=== PATIENT | male | born 1975 | race American Indian/Alaskan Native ===

== ENCOUNTER 2017-01-27 16:01 | Inpatient (IN) | payer OTHER ==
[2017-01-27 17:24] LABS: Basophils % (Auto) 0.9 % (0.0-1.8); Eosinophils % (Auto) 5.9 % (0.0-4.3); Hematocrit 52.2 % (35.5-45.6); Hemoglobin 17.2 gm/dl (11.8-15.2); Mean Corpuscular HGB Conc 33 % (32-34); Mean Corpuscular Hemoglobin 29 pg (28-32); Mean Corpuscular Volume 89 fl (84-94); Platelet Count 218 K/mm3 (140-440); Red Cell Distribution Width 13.8 % (13.2-15.2); White Blood Count 6.4 K/mm3 (4.5-11.0)
[2017-01-27 17:39] LABS: Anion Gap 20 mmol/L; BUN/Creatinine Ratio 12.22; Blood Urea Nitrogen 11 mg/dL (9-20); Calcium 9.4 mg/dL (8.4-10.2); Carbon Dioxide 27 mmol/L (22-30); Chloride 99.5 mmol/L (98-107); Glucose 89 mg/dL (75-100); Potassium 4.2 mmol/L (3.6-5.0); Sodium 142 mmol/L (137-145)
[2017-01-27] MEDS ORDERED: ZOFRAN IV ONE (19:59)
[2017-01-27] MEDS ORDERED: XOPENEX IH ONE (19:59)
[2017-01-27] MEDS ORDERED: SUBLIMAZE IV ONE (19:59)
[2017-01-27] MEDS ORDERED: ATROVENT IH ONE (19:59)
--- NOTE | 2017-01-27 20:06 | Emergency Department Report ---
HPI - General Chief Complaint: Chest Pain Time Seen by Provider: 01/27/17 19:51 - HPI HPI: Room 23 The patient is a 41-year-old male presenting with a chief complaint of chest pain. Patient states his symptoms began 2 days ago with left lower back pain. The patient states this morning he developed left chest tightness associated with shortness of breath. Patient denies nausea vomiting or diaphoresis. Patient has a history of spontaneous pneumothorax on the right side approximately 2 years ago and stated it feels similar. Patient states he's never had a stress test or cardiac catheterization Location: [see above] Duration: [see above] Quality: Tightness Severity: 8-910 Modifying factors: [see above] Context: [see above] Mode of transportation: Unknown ED Past Medical Hx - Past Medical History Hx Asthma: Yes (38 yrs.) Additional medical history: Spontaneous right-sided pneumothorax 2015 treated with nonrebreather - Surgical History Past Surgical History?: No - Family History Family history: no significant - Social History Smoking Status: Current Every Day Smoker (1/2 pack per day) Substance Use Type: None (denies illicit drug use), Alcohol (occasional) - Medications Home Medications: Home Medications Medication Instructions Recorded Confirmed Last Taken Type Ipratropium/Albuterol Sulfate 1 ampul IH TIDRT PRN #30 ampul.neb 09/14/13 Unknown Rx [DUONEB *Not for PRN Use*] Albuterol Sulfate [Ventolin HFA] 2 puff IH Q4H PRN #1 hfa.aer.ad 02/04/15 Unknown Rx ED Review of Systems ROS: Stated complaint: BACK PAIN/ASTHMA Other details as noted in HPI Comment: All other systems reviewed and negative Constitutional: denies: chills, fever Eyes: denies: eye pain, eye discharge, vision change ENT: denies: ear pain, throat pain Respiratory: cough, shortness of breath Cardiovascular: chest pain Endocrine: no symptoms reported Gastrointestinal: denies: abdominal pain, nausea, diarrhea Genitourinary: denies: urgency, dysuria Musculoskeletal: denies: back pain, joint swelling, arthralgia Skin: denies: rash, lesions Neurological: denies: headache, weakness, paresthesias Psychiatric: denies: anxiety, depression Hematological/Lymphatic: denies: easy bleeding, easy bruising Physical Exam - Physical Exam Vital Signs: Vital Signs 01/27/17 01/27/17 01/27/17 16:16 18:25 19:29 Temperature 98.4 F 98.2 F Pulse Rate 88 60 80 Respiratory 16 14 18 Rate Blood Pressure 130/96 Blood Pressure 124/84 124/94 [Right] O2 Sat by Pulse 96 100 100 Oximetry Physical Exam: GENERAL: The patient is well-developed well-nourished male sitting on stretcher not appearing to be in acute distress. [] HEENT: Normocephalic. Atraumatic. Extraocular motions are intact. Patient has moist mucous membranes. NECK: Supple. Trachea midline CHEST/LUNGS: Breath sounds equal bilaterally. There is a faint whistling auscultated during expiration on the left. Faint wheezes auscultated bilaterally. There is no respiratory distress noted. HEART/CARDIOVASCULAR: Regular. There is no tachycardia. There is no gallop rub or murmur. ABDOMEN: Abdomen is soft, nontender. Patient has normal bowel sounds. There is no abdominal distention. SKIN: There is no rash. There is no edema. There is no diaphoresis. NEURO: The patient is awake, alert, and oriented. The patient is cooperative. The patient has normal speech and gait. MUSCULOSKELETAL: There is no evidence of acute injury. ED Course Vital Signs 01/27/17 01/27/17 01/27/17 16:16 18:25 19:29 Temperature 98.4 F 98.2 F Pulse Rate 88 60 80 Respiratory 16 14 18 Rate Blood Pressure 130/96 Blood Pressure 124/84 124/94 [Right] O2 Sat by Pulse 96 100 100 Oximetry - Consultations Consultation #1: 01/27/17 22:39 CT chest discussed with the reading radiologist Dr. Parada. She states the left hilum contains a bulla ED Medical Decision Making - Lab Data Result diagrams: 01/27/17 16:44 01/27/17 16:44 Laboratory Tests 01/27/17 01/27/17 01/27/17 16:44 16:44 18:36 WBC 6.4 RBC 5.90 H Hgb 17.2 H Hct 52.2 H MCV 89 MCH 29 MCHC 33 RDW 13.8 Plt Count 218 Lymph % (Auto) 32.5 Churchill % (Auto) 8.7 H Eos % (Auto) 5.9 H Baso % (Auto) 0.9 Lymph # 2.1 Churchill # 0.6 Eos # 0.4 Baso # 0.1 Seg Neutrophils % 52.0 Seg Neutrophils # 3.4 Sodium 142 Potassium 4.2 Chloride 99.5 Carbon Dioxide 27 Anion Gap 20 BUN 11 Creatinine 0.9 Estimated GFR > 60 BUN/Creatinine Ratio 12.22 Glucose 89 Calcium 9.4 Troponin T < 0.010 < 0.010 01/27/17 21:39 WBC RBC Hgb Hct MCV MCH MCHC RDW Plt Count Lymph % (Auto) Churchill % (Auto) Eos % (Auto) Baso % (Auto) Lymph # Churchill # Eos # Baso # Seg Neutrophils % Seg Neutrophils # Sodium Potassium Chloride Carbon Dioxide Anion Gap BUN Creatinine Estimated GFR BUN/Creatinine Ratio Glucose Calcium Troponin T < 0.010 - EKG Data -: EKG Interpreted by Me EKG shows normal: sinus rhythm Rate: normal - EKG Data When compared to previous EKG there are: previous EKG unavailable Interpretation: nonspecific ST-T wave arianne (T-wave inversion in lead V2) 01/27/17 22:15 EKG #2 performed at 21:35 reveals normal sinus rhythm at 65 bpm. Patient continues to have T-wave inversion in lead V2 but otherwise no ischemic changes - Radiology Data Radiology results: report reviewed (CT chest), image reviewed (chest x-ray, CT chest) interpreted by me: Chest x-ray-no focal infiltrates, no pneumothorax CT chest (read by myself)-large cystic/cavitary lesion at left hilum images [address] chest (read by radiologist)- no evidence of pulmonary embolus. 8 mm hypodense lesion in the liver. Splenic calcified granulomas. *After a phone call with radiologist she states cystic lesion seen in the left hilum represents a bulla* - Differential Diagnosis pneumothorax, PE, ACS, pericarditis, pneumonia Critical care attestation.: If time is entered above; I have spent that time in minutes in the direct care of this critically ill patient, excluding procedure time. ED Disposition Clinical Impression: Chest pain Disposition: OP ADMIT IP TO THIS HOSP Is pt being admited?: Yes Condition: Fair Instructions: Chest Pain (ED) Referrals: PRIMARY CARE, [Primary Care Provider] - 3-5 Days Time of Disposition: 22:32 (hospitalist paged)
--- NOTE | 2017-01-27 20:30 | XRay Report ---
FINAL REPORT EXAM: XR CHEST 1V AP HISTORY: left chest pain TECHNIQUE: AP portable chest radiograph. PRIORS: None FINDINGS: The lungs are clear. No focal consolidation or pleural effusion is identified. The mediastinum and pita are normal. The aorta is normal. The cardiac silhouette is normal. The osseous structures are intact. IMPRESSION: No evidence of acute cardiopulmonary disease.
[2017-01-27] MEDS ORDERED: NACL ONE (21:00)
--- NOTE | 2017-01-27 22:14 | Cat Scan Report ---
FINAL REPORT EXAM: CT ANGIO CHEST HISTORY: left chest and back pain, shortness of breath TECHNIQUE: CT angiogram of the chest. 100 cc of Omnipaque 350 was administered. MIP, coronal and sagittal reconstructions were obtained. PRIORS: None. FINDINGS: No filling defects are identified in the pulmonary arteries, 1st and 2nd order branches. There is no evidence of an aortic aneurysm or dissection. No focal consolidation or pleural effusion is seen. The central airways are patent. No abnormally enlarged lymph nodes are identified. There is no pericardial effusion. The thyroid gland is normal. Evaluation of the upper abdomen demonstrates a 8 mm hypodense lesion in the liver which is too small to characterize. Calcified granulomas in the spleen. The osseous structures are unremarkable. IMPRESSION: No evidence of pulmonary embolism. 8mm hypodense lesion in the liver. Splenic calcified granulomas.
[2017-01-27] MEDS ORDERED: NITRO-BID 2% TP ONE (22:44)
[2017-01-27] MEDS ORDERED: ASPIRIN PO ONE (22:44)
--- NOTE | 2017-01-27 23:38 | History and Physical Report ---
History of Present Illness Date of examination: 01/27/17 Date of admission: 01/27/17 22:42 Chief complaint: CP History of present illness: Patient is a 41 yo man with a history of asthma, tobacco dependancy and spontaneous pneumothorax who presents with severe, constant, nonradiating left- sided chest tightness that started last evening without any aggravating or relieving factors. Patient denies any shortness of breath, nausea vomiting abdominal pain, fevers chills worsening cough. CTA of the chest no evidence of pulmonary embolism, 8mm hyperdense lesion fever, splenic calcification granuloma , there is bulla in the medial left lower lobe Past Medical History: Asthma, Pneumothorax Past Surgical History: He denies Social history: He smokes a half a pack of cigarettes a day, he denies any alcohol dependency, he does smoke marijuana on occasion Family history: Paternal grandmother had hypertension, asthma ROS: Constitutional: no weight loss, no weight gain, no chills, no sweats, no fatigue , no weakness, no poor appetite Ears, nose, mouth and throat: no deferred, no ear pain, no decreased hearing, no sinus pressure, no bleeding gums, no dental pain, no mouth pain, no hoarseness, no sore throat, no swelling in mouth, no post-nasal drip, no headache, no vertigo, no pain front of neck, no neck lump Cardiovascular: lightheadedness, decreased exercise tolerance, no orthopnea, no palpitations, no rapid/irregular heart beat, no edema, no syncope, no shortness of breath, no dyspnea on exertion, no paroxysmal nocturnal dyspnea, no claudication, no phlebitis, no high blood pressure, no leg edema Respiratory: no cough with sputum, no excessive sputum, no hemoptysis, no pleurisy, no pain, no pain on inspiration, no respiratory infections, no other Gastrointestinal: no nausea, no diarrhea, no constipation, no hematemesis, no hematochezia, no loss of appetite, no early satiety, no indigestion, no dyspepsia/bloating Genitourinary Male: no flank pain, no discharge, no urinary hesitancy, no nocturia Rectal: no incontinence, no bleeding, no itching, no discharge Musculoskeletal: no neck stiffness, no shooting arm pain, no arm numbness/ tingling, no shooting leg pain, no leg numbness/tingling, no atrophy, no limitation of motion, no fractures, no loss of height, no prior amputations, no arthritis Integumentary: no depigmentation, no dryness, no unusual bruising Neurological: no weakness, no tingling, no syncope, no vertigo, no migraines, no aphasia, no change in mentation, no changes in smell/taste, no balance difficulties, no double vision, no burning pain, no paralysis Psychiatric: hypersomnia, change in libido, irritability, no anxiety, no memory loss, no sleep disturbances, no change in appetite, no disorientation, no hallucinations, no paranoia, no hopelessness, no anxiety attacks, no confusion Endocrine: no cold intolerance, no polyphagia, no polydipsia, no polyuria, no nocturia, no proptosis, no palpatations, no high blood sugars, no low blood sugars, no fatigue Hematologic/Lymphatic: no easy bruising, no lymphedema Allergic/Immunologic: no urticaria, no allergic rhinitis, no anaphylaxis Medications and Allergies Allergies Allergy/AdvReac Type Severity Reaction Status Date / Time No Known Allergies Allergy Verified 01/27/17 19:32 Home Medications Medication Instructions Recorded Confirmed Last Taken Type Ipratropium/Albuterol Sulfate 1 ampul IH TIDRT PRN #30 ampul.neb 09/14/13 Unknown Rx [DUONEB *Not for PRN Use*] Albuterol Sulfate [Ventolin HFA] 2 puff IH Q4H PRN #1 hfa.aer.ad 02/04/15 Unknown Rx Exam - Physical Exam Narrative exam: GEN: WDWN, NAD, AWAKE, ALERT, ORIENTATED x 3 HEENT: NCAT, PERRL, EOMI, OP CLEAR NECK: SUPPLE, NO THYROMEGALY, NO JVD, NO LAD CVS: RRR, NORMAL S1S2 LUNGS/CHEST: CTA B, NORMAL CHEST EXPANSION B, GOOD AIR ENTRY B, reproducible chest wall tenderness ABD: SOFT, NTND, GBS, NO REBOUND OR GUARDING EXT/SKIN: NO SIGNIFICANT EDEMA OR RASH MSK: FROM X 4 EXTREMITIES NEURO: CN 2-12 GROSSLY INTACT, NO FOCAL DEFICITS PSY: CALM - Constitutional Vitals: Temp Pulse Resp BP Pulse Ox 98.2 F 77 16 114/63 100 01/27/17 18:25 01/27/17 22:56 01/27/17 22:46 01/27/17 22:56 01/27/17 22:46 Results - Labs CBC & Chem 7: 01/27/17 16:44 01/27/17 16:44 Assessment and Plan Patient is a 41 yo man with a history of asthma, tobacco dependancy and spontaneous pneumothorax who presents with severe, constant, nonradiating left- sided chest tightness with left back pain that started last evening without any aggravating or relieving factors. Patient denies any shortness of breath, nausea, vomiting, abdominal pain, fevers, chills, worsening cough. CTA of the chest no evidence of pulmonary embolism, 8mm hyperdense lesion fever, splenic calcification granuloma, there is bulla in the medial left lower lobe -Chest pain, reproducible most likely muscle skeletal: Get stress test -Tobacco dependency: Counseling stopping -Mild asthma exacerbation: Treat with albuterol -DVT prophylaxis: Subcutaneous heparin
[2017-01-28] MEDS ORDERED: PROVENTIL IH PRN (01:01)
[2017-01-28] MEDS: HEPARIN SUB-Q SCH ×3 (02:22→22:23)
--- NOTE | 2017-01-28 06:50 | Admit Criteria Form ---
Admission Criteria Documentation: CARDIOLOGY GRG Clinical Indications for Admission to Inpatient Care ([place]/check or initial the applicable condition/criteria) Hospital admission is needed for appropriate care of the patient because of ANY ONE of the following: [ ] I. Hemodynamic instability as indicated by ALL of the following (1)(2)(3) (4)(5)(6)(7)(8)(9)(10) [ ]a) Vital sign abnormality not readily corrected by appropriate treatment with 12-24 hours for ANY ONE: [ ]i) Hypotension that persists despite appropriate treatment (eg, volume repletion) [ ]ii) Tachycardiathat persists despite appropriate tx ( e.g., analgesia, fluids, sedation as indicated [ ]iii) Orthostatic vital sign changes that persists despite appropriate treatment (eg, volume repletion) [ ]b) Vital sign abnormailty that is severe indicated by ANY ONE of the following: [ ]i) Inadequate perfusion indicated by ANY ONE of the following: [ ] 1) Lactic acidosis (> 2 mmol/L) [ ] 2) New abnormal capillary refill (> 3 seconds) [ ] 3) Reduced urine output [ ] 4) New altered mental status [ ] 5) Myocardial Ischemia [ ] 6) Other metabolic acidosis (arterial pH <7.35 ) not otherwise explained. [ ]ii) Mean arterial pressure[A] less than 60 mm Hg [ ]iii) Mean arterial pressure[A] less than 70 mm Hg after 30 minutes of appropriate treatment (eg, fluid resuscitation) [ ]iv) Sustained heart rate greater than 120 beats per minute in adult or child 6 years or older[B] [ ]v) IV inotropic or vasopressor medication required to maintain adequate blood pressure or perfusion [ ] II. Severe heart failure as indicated by ANY ONE of the following(17)(18) [ ]a) Respiratory distress [ ]b) Hypotension [ ]c) Debilitating anasarca refractory to therapy (eg, tissue breakdown with infection)[C](19) [ ]d) Cardiac arrhythmias of immediate concern [ ]e) Myocardial ischemia [ ] III. Cardiac arrhythmias or findings of immediate concern indicated by ANY ONE of the following (21)(22): [ ] a) Heart rhythms that are inherently dangerous or unstable indicated by ANY ONE of the following (23)(24)(25): [ ] i) Resuscitated ventricular fibrillation or cardiac arrest [ ] ii) Ventricular escape rhythm [ ] iii) Sustained ventricular tachycardia (30 seconds or more of ventricular rhythm at greater than 100 beats per minute) [ ] iv) Nonsustained ventricular tachycardia and ANY ONE of the following: [ ] 1) Suspected cardiac ischemia as cause or consequence of ventricular tachycardia [ ] 2) Acute myocarditis [ ] b) Unstable cardiac conduction defects indicated by ANY ONE of the following(25)(26)(27) [ ] i) Type II second-degree atrioventricular block [ ]ii) Third-degree atrioventricular block [ ]iii) New-onset left bundle branch block with suspected myocardial ischemia [ ]c) Any heart rhythm and ANY ONE of the following (23)(24)(28)(29) (30) [ ] i) Continuous long-term ECG monitoring needed (e.g., initiation of drug requiring monitoring for more than 24 hours) [ ] ii) Patient has automatic implanted cardioverter defibrillator that is repeatedly firing, malfunctioning, or in need of immediate adjustment of settings beyond the scope of ambulatory or observation care [ ]d) Heart rhythms of concern due to ANY ONE of the following: [ ] i) Hypotension [ ] ii) Respiratory distress [ ] iii) Association with other significant symptoms (e.g., bradycardia with syncope or ongoing dizziness, supraventricular tachycardia with chest pain (28)(29)(31) [ ] IV. Monitoring for cardiac contusion beyond the scope of observation care needed [A](32)(33)(34) [ ] V. Surgical or device complication (e.g., valve replacement complication , ICD disfunction or pacemaker dysfunction) (49)(50)(51)(52)(53)(54) [ ] . Inpatient palliative care needed. [F](51)(52) Also use Inpatient Palliative Care Criteria [ ] VII. Nonbacterial thrombotic (marantic) endocarditis(43)(44)(55)(56)(57) [ X] VIII. Cardiology condition, symptom, or finding for which emergency and observation care has failed or are not considered appropriate. [ ] IX. Acute valvular disease requiring inpatient as indicated by ANY ONE of the following (40)(41) [ ]a) Acute valvular regurgitation (42) [ ]b) Noninfectious valvulitis (43)(44) [ ]c) Obstructive valve thrombosis (45)(46) [ ]d) Paravalvular leak(47)(48) [ ]e) Other significant valvular disorder remaining after emergency or observation level of care (as appropriate) [ ]X. Pericardial disease requiring inpatient treatment as indicated by ANY ONE of the following (35)(36)(37)(38) [ ]a) Suspected tamponade [ ]b) Hemopericardium [ ]c) Other significant pericardial disorder remaining after emergency or observation level of care (as appropriate)(39) [ ] XI. Cardiac ischemia beyond scope of emergency and observation care. [ ] XII. Cyanotic heart disease requiring inpatient care as indicated by 1 or more of the following(58)(59)(60): [ ]a) Acute onset of hypoxemia [ ]b) Exacerbation [ ] XIII. Hypertension requiring inpatient treatment as indicated by ANYONE of the following(11)(12)(13)(14): [ ]a) Severe hypertension (SBP greater than 180 mm Hg or DBP greater than 110 mm Hg, or greater than the 95th percentile for age, gender, and height in pediatric patients) that cannot be controlled (eg, to SBP less than 160 mm Hg and DBP less than 100 mm Hg) by emergency department or observation care treatment(15) [ ]b) Acute end organ damage secondary to hypertension (SBP greater than 140 mm Hg or DBP greater than 90 mm Hg) as indicated by ANYONE of the following: [ ] i) Hypertensive encephalopathy (eg, Altered mental status)(16) [ ] ii) Cerebral infarction [ ] iii) Intracranial hemorrhage [ ] iv) Myocardial ischemia or infarction [ ] v) Heart failure (eg, pulmonary edema) [ ] vi) Aortic dissection [ ] vii) Increased creatinine (new) with reduction of more than 50% in estimated glomerular filtration rate from baseline [ ] viii) Papilledema [ ] ix) Retinal hemorrhage [ ] x) Microangiopathic hemolytic anemia [ ] xi) Seizure [ ] xii) Other significant finding secondary to hypertension [ ] XIV. Complications of transplanted heart indicated by ANY ONE of the following(61): [ ]a) Acute graft rejection requiring inpatient management (eg, intravenous imunosuppression)(62)(63) [ ]b) Acute graft heart failure indicated by ANY ONE of the following(64): [ ] i) Hemodynamic instability [ ] ii) Cardiac arrhythmias of immediate concern [ ] iii) Pulmonary edema that is very severe (eg, mechanical ventilation needed, imminent or likely, need for 100% oxygen to keep oxygen saturation above 90%) [ ] iv) Pulmonary edema that is persistent as indicated by ALL of the following: [ ] 1) New need for oxygen therapy to keep oxygen saturation above 90 % (or increased FiO2 need from baseline) [ ] 2) Has not improved sufficiently with emergency department or observation care IV diuretics or other heart failure treatments[E]. [ ] iv) Altered mental status that is severe or persistent [ ] iv) Increased creatinine (new on laboratory test) with reduction of more than 50% in estimated glomerular filtration rate from baseline [ ] iv) Progressively (ongoing) rising creatinine (known from past laboratory test) with reduction of more than 25% in estimated glomerular filtration rate from baseline [ ] iv) Acute renal failure [ ] iv) Acute peripheral ischemia (eg, examination shows pulseless, cool, mottled, or cyanotic extremity) [ ] iv) Pulmonary artery catheter monitoring needed [ ] iv) Other sign or symptom of heart failure requiring inpatient treatment (ie, too severe or not responsive to outpatient and observation care treatment) [ ]c) Infection requiring inpatient management (eg, Hemodynamic instability, need for intravenous antimicrobial treatment)(66)(67)(68)(69)(70) [ ]d) Cardiac allograft vasculopathy requiring inpatient management (eg evidence of cardiacischemia)(71) [ ]e) Other complication of transplanted heart (eg, stroke, severe pulmonary hypertension, severe valvular dysfunction) requiring inpatient management(72) The original [employer] content created by [employer] has been revised. The portions of the content which have been revised are identified through the use of italic text or in bold, and [facility] has neither reviewed nor approved the modified material. All other unmodified content is copyright [facility] [employer] [facility]. Please see references footnoted in the original [employer] [employer] [facility] edition 2017 Admission Criteria Met: Yes
[2017-01-28] MEDS ORDERED: LEXISCAN IV ONE (09:29)
[2017-01-28] MEDS: HABITROL TD SCH (11:47)
--- NOTE | 2017-01-28 15:10 | Progress Note ---
Assessment and Plan Assessment and plan: Chest pain. Stress test negative, non crdia, musculoskeletal chest pain. UTI. Started on Levaquin Left flank pain. Will get Ultrasound left kidney to r/o pyelonephritis Asthma. Full code status. History Interval history: pain left flank, chest pain Hospitalist Physical - Physical exam Narrative exam: Gen appearance: Not in acute distress HEENT: normocephalic, atraumatic Neck: supple, no JVD, Lungs: Clear to auscultation bilaterally, no crackles or wheezes Heart :S1 and S2 regular, no murmurs, rubs or gallop Abdomen: Soft, Non tender, non distended, bowel sounds present Extremities :no edema, no clubbing or cyanosis Neuro: AAO x 3, no focal neurological signs - Constitutional Vitals: Temp Pulse Resp BP Pulse Ox 98.3 F 76 18 123/73 90 01/28/17 11:40 01/28/17 11:40 01/28/17 11:40 01/28/17 11:40 01/28/17 11:40 Results - Labs CBC & Chem 7: 01/27/17 16:44 01/27/17 16:44 Labs: Laboratory Last Values WBC 6.4 K/mm3 (4.5-11.0) 01/27/17 16:44 RBC 5.90 M/mm3 (3.65-5.03) H 01/27/17 16:44 Hgb 17.2 gm/dl (11.8-15.2) H 01/27/17 16:44 Hct 52.2 % (35.5-45.6) H 01/27/17 16:44 MCV 89 fl (84-94) 01/27/17 16:44 MCH 29 pg (28-32) 01/27/17 16:44 MCHC 33 % (32-34) 01/27/17 16:44 RDW 13.8 % (13.2-15.2) 01/27/17 16:44 Plt Count 218 K/mm3 (140-440) 01/27/17 16:44 Lymph % (Auto) 32.5 % (13.4-35.0) 01/27/17 16:44 Douglas % (Auto) 8.7 % (0.0-7.3) H 01/27/17 16:44 Eos % (Auto) 5.9 % (0.0-4.3) H 01/27/17 16:44 Baso % (Auto) 0.9 % (0.0-1.8) 01/27/17 16:44 Lymph # 2.1 K/mm3 (1.2-5.4) 01/27/17 16:44 Douglas # 0.6 K/mm3 (0.0-0.8) 01/27/17 16:44 Eos # 0.4 K/mm3 (0.0-0.4) 01/27/17 16:44 Baso # 0.1 K/mm3 (0.0-0.1) 01/27/17 16:44 Seg Neutrophils % 52.0 % (40.0-70.0) 01/27/17 16:44 Seg Neutrophils # 3.4 K/mm3 (1.8-7.7) 01/27/17 16:44 Sodium 142 mmol/L (137-145) 01/27/17 16:44 Potassium 4.2 mmol/L (3.6-5.0) 01/27/17 16:44 Chloride 99.5 mmol/L (98-107) 01/27/17 16:44 Carbon Dioxide 27 mmol/L (22-30) 01/27/17 16:44 Anion Gap 20 mmol/L 01/27/17 16:44 BUN 11 mg/dL (9-20) 01/27/17 16:44 Creatinine 0.9 mg/dL (0.8-1.5) 01/27/17 16:44 Estimated GFR > 60 ml/min 01/27/17 16:44 BUN/Creatinine Ratio 12.22 % 01/27/17 16:44 Glucose 89 mg/dL (75-100) 01/27/17 16:44 Calcium 9.4 mg/dL (8.4-10.2) 01/27/17 16:44 Troponin T < 0.010 ng/mL (0.00-0.029) 01/27/17 21:39
[2017-01-28 15:40] LABS: Bilirubin,Urine NEG (Negative); Blood,Urine NEG (Negative); Ketones,Urine NEG (Negative); Leukocyte Esterase,Urine SM (Negative); Mucus,Urine FEW /HPF; Nitrite,Urine NEG (Negative); Protein,Urine <15 mg/dL mg/dL (Negative); Urobilinogen,Urine < 2.0 mg/dL (<2.0)
[2017-01-28] MEDS ORDERED: LEVAQUIN 500MG/100ML 500 MG/100 ML BAG IV SCH (17:00)
[2017-01-28] MEDS: NORCO 5/325 PO PRN ×2 (17:27→23:42)
--- NOTE | 2017-01-28 23:52 | Treadmill Report ---
STRESS THALLIUM REPORT Resting myocardial perfusion images revealed slightly diminished radioisotope activity in the inferior wall, probably due to diaphragmatic artifact. On post-stress perfusion images following technetium revealed homogeneous radioisotope distribution throughout the myocardium. On gated scan, ejection fraction was noted to be 52%. There is no evidence of transient ischemic dilatation. IMPRESSION: 1. This test is negative for ischemia. 2. Ejection fraction is 52%. 3. EKG was unremarkable. JOB# [id number] KR/SUSAN
[2017-01-29] MEDS ORDERED: NACL 0.9% 1000 ML 1,000 ML IV SCH (06:00)
--- NOTE | 2017-01-29 08:25 | Ultrasound Report ---
Renal sonogram: History: Left flank pain. Findings: Right kidney 10.4 x 5 x 5.7 cm. Cortical thickness 1.8 cm. Left kidney 10.2 x 4.9 x 5 cm. Cortical thickness 1.6 cm. No definite evidence of mass or hydronephrosis. Impression: No definite evidence of hydronephrosis.
[2017-01-29] MEDS: NORCO 5/325 PO PRN (09:39)
[2017-01-29] MEDS: HEPARIN SUB-Q SCH (09:40)
[2017-01-29] MEDS: HABITROL TD SCH (09:42)
--- NOTE | 2017-01-29 10:12 | Discharge Summary ---
Providers - Providers Date of Admission: 01/27/17 22:42 Date of discharge: 01/29/17 Attending physician: CATHY PARADA Primary care physician: RANDALL DUNN MD Hospitalization Condition: Fair Hospital course: Patient is 41 yo presented with left sided chest pain and flank pain. Ct Angio was negative for pulmonary embolism and he was admitted . Urinalysis showed UTI so was started on Levaquin. Stress test was done following day was normal. For flank pain, renal ultrasound was done and was normal. Patient was subsequently discharged home. Chest pain of musculoskeletal etioloy. Total time spent on discharge, 32 mins Disposition: DC-01 TO HOME OR SELFCARE - Discharge Diagnoses (1) Musculoskeletal chest pain Status: Acute (2) Chest pain Status: Acute Qualifiers: Chest pain type: C Ischemic chest pain type: I Comment: musculoskeletal (3) UTI (urinary tract infection) Status: Acute Qualifiers: Urinary tract infection type: acute cystitis Hematuria presence: H Indwelling urinary catheter type: I Encounter type: E Core Measure Documentation - Palliative Care Palliative Care/ Comfort Measures: Not Applicable - Core Measures Any of the following diagnoses?: none Exam - Physical Exam Narrative exam: Gen appearance: Not in acute distress HEENT: normocephalic, atraumatic Neck: supple, no JVD, Lungs: Clear to auscultation bilaterally, no crackles or wheezes Heart :S1 and S2 regular, no murmurs, rubs or gallop Abdomen: Soft, Non tender, non distended, bowel sounds present Extremities :no edema, no clubbing or cyanosis Neuro: AAO x 3, no focal neurological signs - Constitutional Vitals: Temp Pulse Resp BP Pulse Ox 97.9 F 72 18 114/65 91 01/29/17 08:25 01/29/17 08:25 01/29/17 08:25 01/29/17 08:25 01/29/17 08:25 Plan Activity: no restrictions Diet: regular Additional Instructions: 1.Follow up with PCP or [facility] in 1 week Follow up with: PRIMARY CARE, [Primary Care Provider] - 3-5 Days Prescriptions: Ciprofloxacin HCl [Ciprofloxacin TAB] 500 mg PO BID #14 tablet Famotidine [Pepcid] 20 mg PO BID #30 tablet Ibuprofen [Motrin 400 MG tab] 400 mg PO Q8H PRN #20 tablet PRN Reason: Pain
[2017-01-29 13:32] VITALS: BP 123/76
== END 2017-01-29 12:17 | disposition home or self-care (01) | DRG 202 ==
LOC: ED 16:01 → 4A 22:42
PROVIDERS: ADMIT Internal Medicine; ATTEND Internal Medicine
DX: J45.901 Unspecified asthma with (acute) exacerbation (principal); N39.0 Urinary tract infection, site not specified; R07.89 Other chest pain; F17.210 Nicotine dependence, cigarettes, uncomplicated; Z72.89 Other problems related to lifestyle; Z82.49 Family history of ischemic heart disease and other diseases of the circulatory system; Z82.5 Family history of asthma and other chronic lower respiratory diseases
CPT/HCPCS: 36415; 71010; 71275; 76770; 78452; 80048; 81001; 84484; 85025; 87040; 87086; 93005; 93010; 93017; 94640; A9502; J1644; J1956; J2405; J3010; J7030; Q9967

== ENCOUNTER 2017-03-17 20:36 | Emergency (ER) | payer OTHER ==
--- NOTE | 2017-03-18 02:31 | Emergency Department Report ---
ED ENT HPI - General Chief complaint: Sore Throat Stated complaint: SORE THROAT Time Seen by Provider: 03/18/17 01:55 Source: patient Mode of arrival: Ambulatory Limitations: No Limitations - History of Present Illness Initial comments: 41-year-old male past medical history none presents with complaint of a week and a half of sore throat difficulty swallowing solids intermittent fevers chills and body aches. Patient has no trismus noted drooling no audible wheezing or stridor. Accompanied by his girlfriend. States he has extreme difficulty swallowing solids. complaint: sore throat Onset/Timin -: week(s) Location: throat Severity: moderate Severity scale (0 -10): 6 Quality: aching Consistency: constant Improves with: none Worsens with: swallowing Associated Symptoms: pain with swallowing, sore throat - Related Data Previous Rx's Medication Instructions Recorded Last Taken Type Ipratropium/Albuterol Sulfate 1 ampul IH TIDRT PRN #30 ampul.neb 09/14/13 Unknown Rx [DUONEB *Not for PRN Use*] Albuterol Sulfate [Ventolin HFA] 2 puff IH Q4H PRN #1 hfa.aer.ad 02/04/15 Unknown Rx Ciprofloxacin HCl [Ciprofloxacin 500 mg PO BID #14 tablet 01/29/17 Unknown Rx TAB] Famotidine [Pepcid] 20 mg PO BID #30 tablet 01/29/17 Unknown Rx Ibuprofen [Motrin 400 MG tab] 400 mg PO Q8H PRN #20 tablet 01/29/17 Unknown Rx Clindamycin [Clindamycin CAP] 300 mg PO Q8H #30 cap 03/18/17 Unknown Rx Ibuprofen [Motrin 600 MG tab] 600 mg PO Q8H PRN #30 tablet 03/18/17 Unknown Rx Allergies Allergy/AdvReac Type Severity Reaction Status Date / Time No Known Allergies Allergy Verified 01/27/17 19:32 ED Dental HPI - General Chief complaint: Sore Throat Stated complaint: SORE THROAT Time Seen by Provider: 03/18/17 01:55 Source: patient Mode of arrival: Ambulatory Limitations: No Limitations - Related Data Previous Rx's Medication Instructions Recorded Last Taken Type Ipratropium/Albuterol Sulfate 1 ampul IH TIDRT PRN #30 ampul.neb 09/14/13 Unknown Rx [DUONEB *Not for PRN Use*] Albuterol Sulfate [Ventolin HFA] 2 puff IH Q4H PRN #1 hfa.aer.ad 02/04/15 Unknown Rx Ciprofloxacin HCl [Ciprofloxacin 500 mg PO BID #14 tablet 01/29/17 Unknown Rx TAB] Famotidine [Pepcid] 20 mg PO BID #30 tablet 01/29/17 Unknown Rx Ibuprofen [Motrin 400 MG tab] 400 mg PO Q8H PRN #20 tablet 01/29/17 Unknown Rx Clindamycin [Clindamycin CAP] 300 mg PO Q8H #30 cap 03/18/17 Unknown Rx Ibuprofen [Motrin 600 MG tab] 600 mg PO Q8H PRN #30 tablet 03/18/17 Unknown Rx Allergies Allergy/AdvReac Type Severity Reaction Status Date / Time No Known Allergies Allergy Verified 01/27/17 19:32 ED Review of Systems ROS: Stated complaint: SORE THROAT Other details as noted in HPI Constitutional: malaise. denies: chills, fever Eyes: denies: eye pain, eye discharge, vision change ENT: throat pain. denies: ear pain Respiratory: denies: cough, shortness of breath, wheezing Cardiovascular: denies: chest pain, palpitations Endocrine: no symptoms reported Gastrointestinal: denies: abdominal pain, nausea, diarrhea Genitourinary: denies: urgency, dysuria Musculoskeletal: denies: back pain, joint swelling, arthralgia Skin: denies: rash, lesions Neurological: denies: headache, weakness, paresthesias Psychiatric: denies: anxiety, depression Hematological/Lymphatic: denies: easy bleeding, easy bruising ED Past Medical Hx - Past Medical History Previous Medical History?: Yes Hx Congestive Heart Failure: No Hx Diabetes: No Hx Asthma: Yes (38 yrs.) Hx COPD: No Hx HIV: No Additional medical history: Spontaneous right-sided pneumothorax 2015 treated with nonrebreather - Surgical History Past Surgical History?: No - Social History Smoking Status: Current Every Day Smoker Substance Use Type: Alcohol - Medications Home Medications: Home Medications Medication Instructions Recorded Confirmed Last Taken Type Ipratropium/Albuterol Sulfate 1 ampul IH TIDRT PRN #30 ampul.neb 09/14/13 Unknown Rx [DUONEB *Not for PRN Use*] Albuterol Sulfate [Ventolin HFA] 2 puff IH Q4H PRN #1 hfa.aer.ad 02/04/15 Unknown Rx Ciprofloxacin HCl [Ciprofloxacin 500 mg PO BID #14 tablet 01/29/17 Unknown Rx TAB] Famotidine [Pepcid] 20 mg PO BID #30 tablet 01/29/17 Unknown Rx Ibuprofen [Motrin 400 MG tab] 400 mg PO Q8H PRN #20 tablet 01/29/17 Unknown Rx Clindamycin [Clindamycin CAP] 300 mg PO Q8H #30 cap 03/18/17 Unknown Rx Ibuprofen [Motrin 600 MG tab] 600 mg PO Q8H PRN #30 tablet 03/18/17 Unknown Rx ED Physical Exam - General Limitations: No Limitations General appearance: alert, in no apparent distress - Head Head exam: Present: atraumatic, normocephalic - Eye Eye exam: Present: normal appearance, PERRL, EOMI - ENT ENT exam: Present: mucous membranes moist - Expanded ENT Exam Expanded Mouth exam: Present: muffled voice Throat exam: Positive: L peritonsillar mass (visible left-sided peritonsillar abscess with exudates, uvula is slightly deviated to the right) - Neck Neck exam: Present: normal inspection - Respiratory Respiratory exam: Present: normal lung sounds bilaterally. Absent: respiratory distress - Cardiovascular Cardiovascular Exam: Present: regular rate, normal rhythm. Absent: systolic murmur, diastolic murmur, rubs, gallop - GI/Abdominal GI/Abdominal exam: Present: soft, normal bowel sounds - Rectal Rectal exam: Present: deferred - Extremities Exam Extremities exam: Present: normal inspection - Back Exam Back exam: Present: normal inspection - Neurological Exam Neurological exam: Present: alert, oriented X3 - Psychiatric Psychiatric exam: Present: normal affect, normal mood - Skin Skin exam: Present: warm, dry, intact, normal color. Absent: rash ED Course Vital Signs 03/17/17 03/17/17 21:20 21:41 Temperature 98.7 F Pulse Rate 108 H 99 H Respiratory 18 Rate Blood Pressure 133/94 133/94 O2 Sat by Pulse 94 99 Oximetry ED Medical Decision Making - Lab Data Result diagrams: 03/18/17 03:08 03/18/17 03:08 - Medical Decision Making A/P: Left peritonsillar abscess, tonsillitis 1-patient has difficulty swallowing solids and some trouble with liquids 2-speaking in full sentences 3-CT scan consistent with peritonsillar abscess and tonsillitis 4- patient decided to sign out AGAINST MEDICAL ADVICE after I discussed his diagnosis with him. Patient states he prefers to go to [place] on his own or to a hospital that has [address] 7 ENT. I advised him that he is at risk for choking, asphyxiation and airway closure without proper monitoring and this necessitates at least a BLS or ACLS EMT/ambulance transfer to another medical facility. Patient elected to leave AGAINST MEDICAL ADVICE despite my warnings. I provided him with information on his diagnosis copy of his CAT scan and prescriptions for Motrin and clindamycin. I advised him to seek medical attention and ENT attention as soon as possible. I had this discussion with property site manager Mr. Galo and patient's girlfriend at bedside. Patient stated he would go to [facility] as soon as possible on his own accord Critical care attestation.: If time is entered above; I have spent that time in minutes in the direct care of this critically ill patient, excluding procedure time. ED Disposition Clinical Impression: Peritonsillar abscess, Tonsillitis Disposition: DC-07 LEFT AGAINST MED ADVICE Is pt being admited?: No Does the pt Need Aspirin: No Condition: Stable Instructions: Peritonsillar Abscess (ED) Additional Instructions: I advised patient to return to the ED as soon as possible Prescriptions: Clindamycin [Clindamycin CAP] 300 mg PO Q8H #30 cap Ibuprofen [Motrin 600 MG tab] 600 mg PO Q8H PRN #30 tablet PRN Reason: Pain Referrals: PRIMARY CARE, [Primary Care Provider] - 3-5 Days Forms: AMA Form
[2017-03-18] MEDS ORDERED: DECADRON IV ONE (02:43)
[2017-03-18] MEDS ORDERED: CLEOCIN 600 MG/50 mL 600 MG/50 ML BAG IV ONE (02:43)
[2017-03-18] MEDS ORDERED: TORADOL IV ONE (02:43)
[2017-03-18] MEDS ORDERED: NACL 0.9% 1000 ML 1,000 ML IV ONE (02:44)
[2017-03-18 03:46] LABS: Basophils % (Auto) 0.6 % (0.0-1.8); Eosinophils % (Auto) 2.9 % (0.0-4.3); Hemoglobin 15.8 gm/dl (11.8-15.2); Mean Corpuscular HGB Conc 34 % (32-34); Mean Corpuscular Hemoglobin 30 pg (28-32); Mean Corpuscular Volume 88 fl (84-94); Platelet Count 194 K/mm3 (140-440); Red Blood Count 5.33 M/mm3 (3.65-5.03); Red Cell Distribution Width 13.5 % (13.2-15.2); White Blood Count 7.8 K/mm3 (4.5-11.0)
[2017-03-18 04:06] LABS: Anion Gap 21 mmol/L; BUN/Creatinine Ratio 14; Blood Urea Nitrogen 11 mg/dL (9-20); Carbon Dioxide 21 mmol/L (22-30); Chloride 99.7 mmol/L (98-107); Glucose 87 mg/dL (75-100); Potassium 3.6 mmol/L (3.6-5.0); Sodium 138 mmol/L (137-145)
[2017-03-18] MEDS ORDERED: NACL ONE (04:15)
--- NOTE | 2017-03-18 05:12 | Cat Scan Report ---
FINAL REPORT PROCEDURE: CT NECK W CON TECHNIQUE: Computerized axial tomography of the soft tissue neck was performed following the IV injection of iodinated nonionic contrast. HISTORY: peritonsillar abscess left side COMPARISON: No prior studies are available for comparison. FINDINGS: There is bilateral tonsillar enlargement greater on the left. There is a hypodense area in the left palatine tonsil measuring 2.1 centimeters in diameter suggesting phlegmon or early abscess. There narrowing of the oropharynx but no occlusion. There is edematous swelling of the soft palate and uvula. Adenoid soft tissues are unremarkable. There is no prevertebral soft tissue swelling. The tongue and epiglottis are unremarkable. There is cervical lymphadenopathy greater on the left. The parotid and submandibular glands are unremarkable. Thyroid gland is unremarkable. Trachea is midline and patent. Bony structures are intact. Paranasal sinuses are clear. Lung apices are clear. IMPRESSION: There is bilateral tonsillar enlargement greater on the left. There is a hypodense area in the left palatine tonsil measuring 2.1 centimeters in diameter suggesting phlegmon or early abscess. There narrowing of the oropharynx but no occlusion. There is edematous swelling of the soft palate and uvula. There is cervical lymphadenopathy greater on the left. Trachea is midline and patent.
[2017-03-18 07:41] VITALS: BP 132/84
== END 2017-03-18 05:40 | disposition left against medical advice (07) ==
LOC: ED 20:36
DX: J36 Peritonsillar abscess (principal); F17.210 Nicotine dependence, cigarettes, uncomplicated
CPT/HCPCS: 36415; 70491; 80048; 82140; 85025; 87040; 87116; 87430; 96365; 96375; 99284; J1100; J1885; J7030; Q9967